=== PATIENT | female | born 1955 | race Caucasian/White ===

== ENCOUNTER 2016-12-07 06:13 | Day surgery (SDC) | payer BC ==
[2016-12-06 14:40] VITALS: BMI 34.7
[2016-12-07] MEDS ORDERED: Oxymetazoline HCl 0.05% ( 15 ML ) ONE ×3 (07:36→10:45)
[2016-12-07] MEDS ORDERED: Bacitracin Zinc Ointment 30 gm TUBE ONE (08:17)
[2016-12-07] MEDS ORDERED: Lidocaine 1% w/Epinephrine 1:200K 30 ML VIAL ONE (08:17)
[2016-12-07] MEDS ORDERED: Fentanyl 100 MCG/2 ML VIAL ONE ×2 (08:22→10:24)
[2016-12-07] MEDS ORDERED: Ondansetron HCl/PF 4 MG/2 ML Vial ONE (08:52)
[2016-12-07] MEDS ORDERED: Lidocaine 1% PF 5 ML VIAL ONE (08:52)
[2016-12-07] MEDS ORDERED: Glycopyrrolate 0.2 MG/ML 5 ML SYRINGE ONE (08:52)
[2016-12-07] MEDS ORDERED: Propofol 200 MG/20 ML VIAL ONE (08:52)
[2016-12-07] MEDS ORDERED: Dexamethasone 20 MG/5 ML VIAL ONE (08:52)
[2016-12-07] MEDS ORDERED: Promethazine HCl 25 MG/ML VIAL ONE (09:41)
[2016-12-07] MEDS ORDERED: Hydrocodone-Acetamin 15 ML UDCUP ONE (12:59)
--- NOTE | 2016-12-07 18:40 | OP ---
PREOPERATIVE DIAGNOSES: 1. Chronic rhinosinusitis. 2. Nasal septal deviation. 3. Bilateral inferior turbinate hypertrophy. 4. Nasal obstruction. POSTOPERATIVE DIAGNOSES: 1. Chronic rhinosinusitis. 2. Nasal septal deviation. 3. Bilateral inferior turbinate hypertrophy. 4. Nasal obstruction. PROCEDURES: 1. Bilateral endoscopic sinus surgery, total ethmoidectomies. 2. Bilateral endoscopic sinus surgery, maxillary antrostomies. 3. Bilateral endoscopic sinus surgery, frontal sinusotomy. 4. Nasal septoplasty. 5. Bilateral inferior turbinate submucosal resection. SURGEON: Ronnie Amado M.D. ESTIMATED BLOOD LOSS: 50 mL. COMPLICATIONS: None. ANESTHESIA: GETA. PROCEDURE IN DETAIL: Patient was taken to the operating room and placed supine on the table. Gener al endotracheal anesthesia was obtained by the Anesthesia staff. Tube was secured in the left lower lip. Patient was then placed in the beach chair position, and Afrin pledgets were placed in the na radha cavity. Injections of 1% lidocaine with 1:100,000 epinephrine were made into the nasal septum a s well as the inferior turbinates. Patient was then prepped and draped in standard surgical fashion for nasal surgery. Following this, the Afrin pledgets were removed. A Bolt incision was made o n the left nasal septum. Submucoperichondrial dissection was performed. The deviated portions of t he septum included portions of the cartilage and the bony septum. These isolated areas were removed using three cutting rongeurs. There was noted to be a large dorsal and caudal strut, left intact f or support of the nose. The mucoperichondrial flaps were then reapproximated using a 4-0 gut stitch . Any straight pieces of cartilage were crushed prior to this and placed between the mucoperichondr ial flaps. Following this, the inferior turbinates were then punctured with a submucosal coblation wand, and submucosal coblations were performed of multiple areas of the inferior portion of the ante rior inferior turbinate. Please note that the submucosal microdebrider was used to submucosally resect the anterior and infer ior portions of the inferior turbinates bilaterally. Following this, the inferior turbinates were g ently lateralized with a Kremlin elevator. The 0 degree scope was advanced in the middle meatus. 1% lidocaine with 1:100,000 epinephrine was injected with a 27 gauge needle into the middle turbinate, that was present was crushed with the Kremlin elevator as the middle turbinates were medialized. Following this, the uncinate process was anteriorly fractured bilaterally with a ball-ended probe. The microdebrider and the upbiting Blakesley forceps were used to remove the uncinate and identifi ed the natural maxillary sinus ostia. This maxillary sinus ostia bilaterally was widened using the microdebrider and straight Blakesley forceps. Following this, the ethmoidal bulla was identified an d was punctured on its medial and inferior aspect and was removed using the microdebrider. The gran d lamella was identified and was punctured into the posterior ethmoidal cells. Working from posteri or to anterior, the ethmoidal cells were opened in a mucosal-sparing technique. Following this, a 4 5 degree scope and the curved microdebrider were used to further open the frontal recess cells as we ll as identified and widen the frontal sinus ostia bilaterally. Following this, the nasal cavity wa s irrigated. MeroPacks were placed within the middle meatus. Knott splints were placed and secured . The patient tolerated the procedure well.
--- NOTE | 2016-12-08 09:06 | EKG ---
Test Reason : PREOP Blood Pressure : / mmHG Vent. Rate : 072 BPM Atrial Rate : 072 BPM P-R Int : 190 ms QRS Dur : 086 ms QT Int : 440 ms P-R-T Axes : 064 014 057 degrees QTc Int : 481 ms Normal sinus rhythm Normal ECG No previous ECGs available Confirmed by SJ OSMAN ([id number]) on 12/08/2016 9:05:46 AM Referred By: KARLA Confirmed By:SJ OSMAN
== END 2016-12-07 13:45 | disposition home or self-care (01) ==
LOC: SDC 06:13
PROVIDERS: ATTEND Otolaryngology Plastic Surgery within the Head & Neck
PROC: 099T4ZZ Drainage of Left Frontal Sinus, Percutaneous Endoscopic Approach (ICD-10-PCS; principal; 2016-12-07)
PROC: 099R4ZZ Drainage of Left Maxillary Sinus, Percutaneous Endoscopic Approach (ICD-10-PCS; principal; 2016-12-07)
PROC: 099Q4ZZ Drainage of Right Maxillary Sinus, Percutaneous Endoscopic Approach (ICD-10-PCS; principal; 2016-12-07)
PROC: 09BV4ZZ Excision of Left Ethmoid Sinus, Percutaneous Endoscopic Approach (ICD-10-PCS; principal; 2016-12-07)
PROC: 099S4ZZ Drainage of Right Frontal Sinus, Percutaneous Endoscopic Approach (ICD-10-PCS; principal; 2016-12-07)
PROC: 09QM4ZZ Repair Nasal Septum, Percutaneous Endoscopic Approach (ICD-10-PCS; principal; 2016-12-07)
PROC: 09BU4ZZ Excision of Right Ethmoid Sinus, Percutaneous Endoscopic Approach (ICD-10-PCS; principal; 2016-12-07)
PROC: 09BL4ZZ Excision of Nasal Turbinate, Percutaneous Endoscopic Approach (ICD-10-PCS; principal; 2016-12-07)
DX: J32.9 Chronic sinusitis, unspecified (principal); J34.2 Deviated nasal septum; J34.3 Hypertrophy of nasal turbinates; J98.8 Other specified respiratory disorders; Z90.710 Acquired absence of both cervix and uterus; Z98.890 Other specified postprocedural states
CPT/HCPCS: 36415; 85014; 93005; 93010; 96374; J1100; J2001; J2405; J2550; J2704; J3010